=== PATIENT | female | born 1995 | race Caucasian/White ===

== ENCOUNTER 2022-05-25 06:59 | Day surgery (SDC) | payer BC ==
[2022-05-22 11:00] LABS: HCG,QUAL RESULT NEGATIVE (NEGATIVE)
[~2022-05-25] VITALS: Ht 170.2 cm; Wt 90.7 kg
[2022-05-25] MEDS ORDERED: PROPOFOL 200MG/ 20ML VIAL (DIPRIVAN) IV ONE (09:36)
[2022-05-25] MEDS ORDERED: ONDANSETRON HCL 4 MG/2 ML VIAL ONE ×2 (09:36→10:59)
[2022-05-25] MEDS ORDERED: DEXAMETHASONE SOD PHOSPHATE 4 MG/ML VIAL ONE (09:36)
[2022-05-25] MEDS ORDERED: BUPIVACAINE /EPINEPHRINE/PF 0.5% 30 ML VIAL INJ ONE (09:36)
[2022-05-25] MEDS ORDERED: NS 1000 ML IV.SOLN IV ONE (09:36)
[2022-05-25] MEDS ORDERED: NS IRRIG SOLN 1000 ML IR ONE (09:36)
[2022-05-25] MEDS ORDERED: SUCCINYLCHOLINE CHLORIDE 20 MG/ML(QUELICIN) ONE (09:36)
[2022-05-25] MEDS ORDERED: BACITRACIN ZINC 15 GM TOPICAL OINTMENT TP ONE (09:36)
[2022-05-25] MEDS ORDERED: SEVOFLURANE 15 MIN GAS INH ONE (09:36)
[2022-05-25] MEDS ORDERED: MIDAZOLAM HCL 2 MG/2 ML VIAL (VERSED) ONE (09:36)
[2022-05-25] MEDS ORDERED: MEPERIDINE HCL/PF 25 MG/ML DISP.SYRIN IVP PRN (10:15)
[2022-05-25] MEDS ORDERED: HYDROmorphone 1 MG/ML INJ. CARTRIDGE IVP PRN (10:15)
[2022-05-25] MEDS ORDERED: METOCLOPRAMIDE HCL 10 MG/2 ML VIAL IVP PRN (10:15)
[2022-05-25] MEDS ORDERED: ACETAMINOPHEN 325 MG TABLET PO ONE (10:15)
[2022-05-25] MEDS ORDERED: ONDANSETRON HCL 4 MG/2 ML VIAL IVP PRN ×2 (10:15→11:00)
[2022-05-25] MEDS ORDERED: MIDAZOLAM HCL 5 MG/5 ML VIAL IVP PRN (10:15)
[2022-05-25] MEDS ORDERED: HYDROcodone/ACETAMIN 5-325 MG TAB (NORCO/ VICODIN) PO PRN (11:00)
[2022-05-25] MEDS ORDERED: ONDANSETRON 4 MG ODT TAB PO PRN (11:00)
[2022-05-25 12:46] VITALS: BP_SYST 132
== END 2022-05-25 12:20 | disposition home or self-care (01) ==
LOC: SDS 06:59 → SMU 07:00 → SDS 12:20
PROVIDERS: ATTEND Otolaryngology
DX: J35.01 Chronic tonsillitis (principal); J45.909 Unspecified asthma, uncomplicated; Z88.1 Allergy status to other antibiotic agents; Z91.040 Latex allergy status; Z20.822 Contact with and (suspected) exposure to COVID-19
CPT/HCPCS: 84703; 36415 ×2; 42826; 88304; 87426; U0003; J3490; J1100; J3465; J2405; J2704; J0330; J7120; J7030